=== PATIENT | male | born 1995 | race Caucasian/White ===

== ENCOUNTER 2022-06-15 12:54 | Emergency (ER) | payer OTHER ==
[~2022-06-15] VITALS: Ht 175.3 cm; Wt 95.2 kg
[~2022-06-15 12:54] MED LIST: CYCL10 PO; IBU600 MG PO; LIDO700A20 TOP; Percocet 5-3251 EACH PO; SERT25 PO; Zofran8 MG PO
== END 2022-06-15 15:22 | disposition home or self-care (01) ==
LOC: ER 12:54
DX: R40.4 Transient alteration of awareness (principal); G47.9 Sleep disorder, unspecified; Z79.899 Other long term (current) drug therapy; Z87.891 Personal history of nicotine dependence
CPT/HCPCS: 99284

== ENCOUNTER → 2023-03-22 | Outpatient (CLI) | payer OTHER | LOC: LAB SHORT 16:15 → LAB 16:15 | DX: K14.0 Glossitis (principal) | CPT/HCPCS: 87070; 87205 ==

== ENCOUNTER → 2023-11-04 | Outpatient (CLI) | payer OTHER ==
[2023-11-04 13:30] LABS: BASOPHILS ABSOLUTE AUTO 0.05 K/mm3 (0.00-0.23); BASOPHILS PERCENT AUTO 1 % (0-2); EOSINOPHILS ABSOLUTE AUTO 0.14 K/mm3 (0.00-0.68); EOSINOPHILS PERCENT AUTO 2 % (0-6); Hematocrit 45.7 % (37.0-53.0); Hemoglobin 15.7 g/dL (13.5-17.5); IMMATURE GRAN ABSOLUTE AUTO 0.01 K/mm3 (0.00-0.10); IMMATURE GRAN PERCENT AUTO 0 % (0-1); LYMPHOCYTES ABSOLUTE AUTO 1.82 K/mm3 (0.84-5.20); LYMPHOCYTES PERCENT AUTO 24 % (21-46); MONOCYTES ABSOLUTE AUTO 0.74 K/mm3 (0.16-1.47); MONOCYTES PERCENT AUTO 10 % (4-13); Mean Corpuscular HGB 29.9 pg (26.0-34.0); Mean Corpuscular HGB Conc 34.4 g/dL (31.5-36.5); Mean Corpuscular Volume 87 fL (80-100); Mean Platelet Volume 10.5 fL (9.1-12.4); NEUTROPHILS ABSOLUTE AUTO 4.69 K/mm3 (1.96-9.15); NEUTROPHILS PERCENT AUTO 63 % (41-73); Platelet Count 319 K/mm3 (150-400); RDW Coefficient Variation 12.6 % (11.7-14.2); RDW Standard Deviation 39.5 fL (35.1-46.3); Red Blood Cell Count 5.25 M/mm3 (4.30-5.90); White Blood Cell Count 7.45 K/mm3 (4.00-11.30)
[2023-11-04 13:41] LABS: Albumin, Blood 3.9 g/dL (3.4-5.0); Albumin/Globulin Ratio 1.1 (0.8-1.8); Bilirubin, Total 0.3 mg/dL (0.1-1.0); Bun/Creatinine Ratio 9.4 (12.0-20.0); Calcium, Blood 8.9 mg/dL (8.5-10.1); Creatinine, Blood 0.85 mg/dL (0.60-1.20); Globulin, Blood 3.6 g/dL (2.2-4.0); Potassium, Blood 3.7 mmol/L (3.5-5.5); Total Protein, Blood 7.5 g/dL (6.4-8.2)
== END | disposition home or self-care (01) ==
LOC: LAB SHORT 13:25 → LAB 13:25
PROVIDERS: Physician Assistant
DX: K92.0 Hematemesis (principal)
CPT/HCPCS: 80053; 83690; 85025

== ENCOUNTER 2024-02-29 14:08 | Observation (INO) | payer OTHER ==
[~2024-02-29] VITALS: Ht 177.8 cm; Wt 83.9 kg
[2024-02-29 14:13] VITALS: BP 148/95
[2024-02-29] MEDS ORDERED: ESCI10 PO (14:47)
[2024-02-29 14:52] LABS: Source, Urine Clean Catch
[2024-02-29 14:57] LABS: Appearance, Urine Clear (Clear); Bilirubin, Urine Neg (Neg); Blood, Urine Neg (Neg); Color, Urine Amber (P-Yellow); Glucose Qualitative, Urine Neg (Neg); Ketones, Urine 1+ (Neg); Leukocyte Esterase, Urine 1+ (Neg); Nitrite, Urine Neg (Neg); Protein, Urine 2+ (Neg); Specific Gravity, Urine 1.025 (1.003-1.022); Urobilinogen, Urine 2+ (Normal)
[2024-02-29 15:05] LABS: Calcium Oxalate Crystals Many /hpf; Mucus Heavy (0-Heavy); Red Blood Cells, Urine 0-2 /hpf (0-2)
[2024-02-29 15:06] LABS: BASOPHILS ABSOLUTE AUTO 0.02 K/mm3 (0.00-0.23); BASOPHILS PERCENT AUTO 0 % (0-2); EOSINOPHILS ABSOLUTE AUTO 0.01 K/mm3 (0.00-0.68); EOSINOPHILS PERCENT AUTO 0 % (0-6); Hemoglobin 16.2 g/dL (13.5-17.5); IMMATURE GRAN ABSOLUTE AUTO 0.04 K/mm3 (0.00-0.10); IMMATURE GRAN PERCENT AUTO 0 % (0-1); LYMPHOCYTES ABSOLUTE AUTO 1.41 K/mm3 (0.84-5.20); LYMPHOCYTES PERCENT AUTO 13 % (21-46); MONOCYTES ABSOLUTE AUTO 0.87 K/mm3 (0.16-1.47); MONOCYTES PERCENT AUTO 8 % (4-13); Mean Corpuscular HGB 30.4 pg (26.0-34.0); Mean Corpuscular HGB Conc 35.2 g/dL (31.5-36.5); Mean Corpuscular Volume 86 fL (80-100); NEUTROPHILS ABSOLUTE AUTO 8.65 K/mm3 (1.96-9.15); NEUTROPHILS PERCENT AUTO 79 % (41-73); Platelet Count 327 K/mm3 (150-400); RDW Coefficient Variation 12.6 % (11.7-14.2); Red Blood Cell Count 5.33 M/mm3 (4.30-5.90)
[2024-02-29 15:06] LABS: Bacteria Few /hpf; Squamous Epithelial Cells Few /hpf (Few)
[2024-02-29 15:09] LABS: U Amphetamine Screen Not Detected; U Barbituate Screen Not Detected; U Benzodiazapine Screen Not Detected; U Buprenorphine Screen Not Detected; U Cannabinoids Screen DETECTED; U Cocaine Screen Not Detected; U Methadone Screen Not Detected; U Methamphetamine Screen Not Detected; U Opiates Screen Not Detected; U Oxycodone Screen Not Detected; U Phencyclidine Screen Not Detected
[2024-02-29 15:18] LABS: Ethanol (Alcohol), Blood, Med <3 mg/dL; Salicylate 2.8 mg/dL (2.8-20.0)
[2024-02-29 15:23] LABS: Acetaminophen, Random <2.0 ug/mL (10.0-30.0); Alanine Aminotransfer (ALT/SGP 33 U/L (12-78); Albumin, Blood 4.4 g/dL (3.4-5.0); Albumin/Globulin Ratio 1.2 (0.8-1.8); Alk Phos 117 U/L (50-136); Anion Gap 7 mmol/L (3-11); Aspartate Aminotrans (AST/SGOT 21 U/L (12-37); Bilirubin, Total 0.5 mg/dL (0.1-1.0); Blood Urea Nitrogen 8 mg/dL (8-24); Bun/Creatinine Ratio 8.8 (12.0-20.0); CO2, Blood 29 mmol/L (21-32); Calcium, Blood 9.6 mg/dL (8.5-10.1); Chloride, Blood 105 mmol/L (98-108); Creatinine, Blood 0.91 mg/dL (0.60-1.20); Globulin, Blood 3.8 g/dL (2.2-4.0); Glomerular Filtration Rate 118 (60-); Glucose, Blood 116 mg/dL (70-99); Potassium, Blood 3.9 mmol/L (3.5-5.5); Sodium, Blood 137 mmol/L (136-145); Total Protein, Blood 8.2 g/dL (6.4-8.2)
[2024-02-29] MEDS ORDERED: LORazepam 1 MG Tab PO ONE (15:25)
== END 2024-02-29 21:11 | disposition other institution (70) ==
LOC: ER 14:08 → EOR 14:09
PROVIDERS: Emergency Medicine; ADMIT Emergency Medicine
DX: F32.A Depression, unspecified (principal); R45.851 Suicidal ideations; Z79.899 Other long term (current) drug therapy; Z59.00 Homelessness unspecified
CPT/HCPCS: 80053; 80320; 81001; 85025; 87086; 93005; 93010; 99285-25; A9270; G0378; G0480

== ENCOUNTER 2024-02-29 17:39 | Inpatient (IN) | payer OTHER ==
[~2024-02-29] VITALS: Ht 182.9 cm; Wt 84.1 kg
[~2024-02-29 17:39] MED LIST changes: +ESCI10 PO
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
[2024-03-01 08:12] VITALS: BP 127/70
[2024-03-01] MEDS ORDERED: LORazepam 2 MG Tab PO PRN ×2 (08:20)
[2024-03-01] MEDS ORDERED: Mirtazapine 15 MG Tab PO PRN (08:20)
[2024-03-01] MEDS ORDERED: Acetaminophen 325 MG TABLET PO PRN (08:20)
[2024-03-01] MEDS ORDERED: FLU VACC TS2024-25(6MOS UP)/PF 45 MCG/0.5 ML SYRINGE IM SCH (08:20)
[2024-03-01] MEDS ORDERED: Nicotine Polacrilex 2 MG Gum PO PRN (08:25)
[2024-03-01] MEDS ORDERED: Citalopram Hydrobromide 20 MG Tab PO SCH (09:00)
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
[2024-03-01] MEDS ORDERED: HyDROXyzine HCl 25 MG Tab PO PRN (16:10)
[2024-03-01] MEDS ORDERED: Mirtazapine 15 MG Tab PO SCH (21:00)
[2024-03-01 21:16] VITALS: BP 155/73
--- NOTE | 2024-03-02 02:23 | NUR ---
SHIFT SUMMARY: ASSUMED CARE FROM PRIOR SHIFT. PATIENT IS A/OX4, ABLE TO VOICE NEEDS AND HAVE MEANINGFUL CONVERSATION. [place] WAS VISABLY UPSET AFTER PHONE CONVERSATION WITH HIS FATHER. AT SNACK TIME HE SLAMMED HIS TRASH IN THE TRASH CAN AND STORMED OUT OF THE KITCHEN. PATIENT WAS ASSESSED IN HIS ROOM. HE WAS ABLE TO EXPRESS HIS SADNESS AND ANGER WITH HIS FAMILY. I COMMENDED HIM FOR LEAVING A COMMUNITY AREA AND GOING TO HIS ROOM TO TALK IT OUT WITH STAFF. ENCURAGED HIM TO CONTINUE TO EXPRESS HIS FEELINGS TO STAFF MEMBERS WE ARE HERE TO PROTECT AND PROVIDE A SAFE PLACE FOR FEELINGS. HE IS COMPLIENT WITH ASSESSMENTS, CARE AND MEDICATIONS. HE CURRENTLY DENIES SI, VH OR AH. HE GOES TO BED WITHOUT ENCOURAGMENT. HE IS CURRENTLY SLEEPING WITHOUT ANY BEHAVIORS OR ISSUES.
--- NOTE | 2024-03-02 04:19 | NUR ---
PATIENT CONTINUES TO SLEEP THROUGH THE NIGHT. NO NOTED ISSUES OR BEHAVIORS.
[2024-03-02] MEDS ORDERED: DEXTROMETHORPHAN/BENZOCAINE 1 EACH LOZENGE MT PRN (16:15)
--- NOTE | 2024-03-02 17:13 | NUR ---
SHIFT SUMMARY: PT ALERT, ORIENTED AND COOPERATIVE. DENIES SI, HI AND AVH. PT PRESENT ON UNIT FOR MEALS AND WATCHING TV. PROVIDED WITH PRN TYLENOL AND COUGH DROP. HAD A CALL WITH HIS GIRLFRIEND TODAY AND STATED THAT IT WENT WELL.
[2024-03-03 00:45] VITALS: BP 158/79
--- NOTE | 2024-03-03 04:35 | NUR ---
SHIFT SUMMARY Pt was noted to be visibly relaxed this evening, watching a movie with peers. Reported feeling calmer today, congruent with affect. Pt's behavior was appropriate throughout the shift. Cooperative with HS Remeron. Denied hx with med. Gave education so pt can inform provider/staff if he notices improvement in sleep. Pt was observed to be sleeping overnight with few interruptions. PRN nicotine gum given. No other PRN requests. Maintained on precautions. No suicidal statements this shift.
[2024-03-03 08:03] VITALS: BP 137/71
[2024-03-03] MEDS ORDERED: Nicotine 21 MG PATCH TOP SCH (14:45)
--- NOTE | 2024-03-03 17:05 | NUR ---
SHIFT SUMMARY: PT ALERT, ORIENTED AND COOPERATIVE. DENIES SI, HI AND AVH. PT PRESENT ON THE UNIT AND ACTIVE IN UNIT MILIEU. SPENT TIME IN THE DAY ROOM WATCHING TV AND TALKING TO OTHER PATIENTS.
--- NOTE | 2024-03-03 18:10 | NUR ---
PT SPOKE WITH HIS S/O ON THE PHONE AND BECAME UPSET AFTER THE CONVERSATION. STATED THAT SHE BROKE UP WITH HIM AND DOES NOT WANT HIM TO COME TO HER HOUSE TO MEDICAL PATHOLOGIST HIS STUFF. PT WATCHING TV IN DAY ROOM AND HAS BEEN ABLE TO CALM.
[2024-03-03 21:48] VITALS: BP 140/60
--- NOTE | 2024-03-04 06:26 | NUR ---
SHIFT SUMMARY Pt reports uninterrupted sleep on previous night with Remeron. Received 1st dose of 24hr nicotine patch on day shift and verbalized understanding of recommendation to remove patch before HS to avoid potential vivid dreams if worn overnight. Pt forgot to remove patch and awoke around 0130 d/t high anxiety. Reviewed available PRNs. Pt accepted dose of 1x order for Ativan. After sitting near nurses' station for a few min after taking med, he returned to his room and remained in bed for remainder of shift. BP was reported to be elevated when taken this evening, likely d/t anxiety, triggered by environmental stressors. .
[2024-03-04 10:54] VITALS: BP 165/96
[2024-03-04] MEDS ORDERED: AmLODIPine Besylate 5 MG Tab PO SCH (13:00)
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
[2024-03-04 20:57] VITALS: BP 151/91
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
[2024-03-05 07:25] VITALS: BP 130/84
--- NOTE | 2024-03-05 17:58 | NUR ---
SHIFT SUMMARY PT HAD BEEN COOPERATIVE AND PLEASANT MOST OF TODAY. DINNER HAS TRIGGERED ANGER IN PT R/T LACK OF FOOD. PT INFORMED HE RECEIVED WHAT HE ORDERED AND PT CONTINUES TO BE AGITATED AND DISRESPECTFUL TO OTHER PEERS. THIS NURSE INFORMED PT THAT RUDENESS IS NOT NECESSARY. PT THEN WALKED OFF TO RETURN TO DINING ROOM. PT OFFERED ALTERNATIVE MEAL REPLACEMENT AND PT STATES IN MUCH BETTER MOOD. PT APOLOGIZED FOR BEHAVIORS AND DISRESPECT. THIS NURSE SUPPORTED PT WITH COMMUNICATION AND COMMUNITY RESOURCES TO ASSIST WITH ANGER AND COPING SKILLS. PT V/U AN UNDERSTANDING AND THANKFUL. PT PROVIDED W/ NENA GUM AND HYDROX. WILL CONTINUE TO MONITOR AND PROVIDE SUPPORT NECESSARY
[2024-03-05] MEDS ORDERED: QUEtiapine Fumarate 200 MG Tab PO SCH (21:00)
[2024-03-05 22:10] VITALS: BP 158/73
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
[2024-03-06 07:51] VITALS: BP 140/67
--- NOTE | 2024-03-06 08:48 | NUR ---
AM ASSESSMENT PT PLEASANT AND COOPERATIVE AT THIS TIME. PT DENIES SI/HI OR AVH AT THIS TIME. PT ACTIVELY PARTICIPATING WITH PEERS AND STAFF. PT REPORTS CONCERNS WITH LIVING SITUATION AND HOMELESS FOLLOWING DISCHARGE. PT REPORTS MAKING CALLS TO [facility] WITH NO SUCCESS AT THIS TIME.
--- NOTE | 2024-03-06 09:55 | NUR ---
SI THOUGHTS INFORMED BY SW THAT PT REPORTED THOUGHTS OF SELF STRANGLING WITH USE OF HIS ROBE. SW INFORMED PT OF NEED TO REMOVE ROBE AND V/U BY PT. THIS NURSE ALSO INFORMED THAT PT REPORTING FALSE INFORMATION THIS MORNING DURING AM ASSESSMENT OF NO SI THOUGHTS. INFORMATION INFORMED TO CLINICAL COORDINATOR AND DR POPE.
--- NOTE | 2024-03-06 10:45 | NUR ---
BEHAVIOR COMMUNICATIONS DISCUSSED W/ PT RECENT SELF HARM REPORTS/ BEHAVIORS AND UNIT PROTOCOLS FOR NO SELF HARM BEHAVIORS OR POSSIBLE DISCHARGE FOR VOLUNTARY PT. EDUCATED PT ON STAFF ASSISTANCE FOR HOUSING AND PLACEMENT TO THE BEST OF ABILITY BUT SELF HARM BEHAVIORS WILL CAUSE IMMEDIATE DISCHARGE. EDUCATED ON NEED FOR COPING SKILLS AND ABILITY TO DECOMPRESS ANXIETY/ AGITATION. V/U BY PT
--- NOTE | 2024-03-06 14:28 | NUR ---
PT REQUESTED TO HAVE THE SKIN ON HIS TESTICLES CHECKED. THIS RN CHECKED HIS SKIN, NOTED APROX 1.5 CM RED SPOT WITH PEELING SKIN ON TESTICLE. PROVIDER NOTIFIED BY JOSE DE JESUS AZAR.
--- NOTE | 2024-03-06 20:28 | NUR ---
SHIFT SUMMARY PT PLEASANT AND COOPERATIVE FOLLOWING CONVERSATION DOCUMENTED IN PREVIOUS NOTE. PT PARTICIPATING IN CONVERSATION WITH PEERS AND STAFF WITHOUT BEHAVIORAL UPSETS AND SMILING/ LAUGHING. PT HAD PHONE CALL FROM EX THAT HE REPORTS IS NO LONGER EX. PT REPORTS HE IS TO INQUIRE WITH HER ABOUT A PLACE TO STAY AFTER DISCHARGE FOR A FEW NIGHTS. PT REPORTS FEELING WELL AND ATRIBUTES IT TO NEW BP MEDS. EDUCATED PT ON DECREASE IN BP OFTEN DECREASE IN ANXIETY AND IRRITABLITY. V/U BY PT.
[2024-03-06 20:40] VITALS: BP 141/77
--- NOTE | 2024-03-07 04:07 | NUR ---
SHIFT SUMMARY PT DENIED ANY SI, HI OR AVH. AT THE BEGINNING OF MY SHIFT THE PT INFORMED ME THAT EARLIER IN THE DAY HE HAD WANTED TO ATTEMPT TO HANG HIMSELF WITH HIS ROBE, HE NOW DENIES HAVING ANY SELF HARMING THOUGHTS. HE REPORTS THAT HE FEELS BETTER DUE TO GETTING BACK TOGETER WITH HIS GIRLFRIEND AND THAT HE WILL BE LEAVING ON MONDAY. HE STATES THAT HE NOW FEELS LIKE HE HAS THE TOOLS TO BETTER CONTROL HIS ANGER. PT WAS PLEASANT AND INTERACTIVE WITH STAFF AND PEERS. HE WAS COMPLIANT WITH MEDICATIONS. HE WENT TO BED AROUND 2129 AND HAS APPEARED TO BE SLEEPING, EYES CLOSED, RESPIRATIONS EVEN AN UNLABORED. PT'S DOOR HAS REMAINED OPEN DURING THE NIGHT. Q15 MINUTE CHECKS TO CONTINUE PER UNIT PROTOCOL.
[2024-03-07 08:14] VITALS: BP 145/65
--- NOTE | 2024-03-07 11:07 | NUR ---
PT STATES HE IS DEPRESSED BUT MUCH BETTER NOW SINCE HE MADE UP WITH HIS GIRL FRIEND. HAD PAIN 9/10 IN LOW BACK WAS MEDICATED WITH TYLENOL AND PAIN RELIEVED 0/10. DID STATE WHEN HE DISCHARGES HE IS NOT GOING TO [facility]". ORTHOSTATIC VS WITH IN NORMAL LIMITS. HAD A X1 HINT OF CHEST PAIN. WILL CONTINUE TO MONITOR.
--- NOTE | 2024-03-07 17:39 | NUR ---
SHIFT SUMMARY; PT DENIES SI. STATES IS DEPRESSED BUT HAPPY BECAUSE HE WILL BE DISCHARGED TOMORROW. WAS LR OF RUDENESS THIS MORNING BUT APOLGITIC THROUGH OUT HE DAY. HE MADE A PHONE CALL IN EARLY AFTERNOON TO FATHER AND BECAME ANGRY. REMAINS WITH NO ROBE FROM PREVIOUSLY STATING HE WOULD USE IT TO HANG HIMSELF. MED COMPLIANT HAS HAD TYLENOL TWICE TODAY FOR LOW BACK PAIN. RELIEF WITH TYLENOL. ORHOTATIC BP WITHIN NORMAL LIMITS. INTERACTS WITH PEERS. WILL CONTINUE TO MONITOR.
[2024-03-07 19:58] VITALS: BP 150/75
--- NOTE | 2024-03-08 06:11 | NUR ---
SHIFT SUMMARY At start of shift, pt reports plan for discharge tomorrow (03/08/24) and was eager to start the process. Confirmed that pt's preferred pharmacy was already listed and that he could call his mom in the AM to make a plan to [facility] pickup meds. Received report that pt will be living with his girlfriend. 1953: A group of patients was watching movie in tv room when those seated next to this pt alerted staff that pt was suddenly unconscious. The moment was fleeting so unwitnessed by staff. VS were stable (BP 150/75, P 62, O2 98%, RR 18. T 97.9). emery wheel worker performed neuro checks (no abnormalities noted). Memory intact. Updated provider of pt's brief syncopal episode. 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 No acute medical emergency identified. Continued to monitor pt throughout the shift. No additional s/s. Gave PRN hydroxyzine with HS Seroquel. Denies SI. Despite anxiety, expresses readiness for discharge. Pleasant interactions with peers. Calmer with support of others.
[2024-03-08 08:02] VITALS: BP 137/81
[2024-03-08] MEDS ORDERED: HYDHCL25 PO (10:28)
[2024-03-08] MEDS ORDERED: NICO21TP TOP (10:29)
[2024-03-08] MEDS ORDERED: QUET200 PO (10:30)
--- NOTE | 2024-03-08 13:33 | NUR ---
DISCHARGE NOTE. PT A/O X4. DISCHARGED AT 1303. PT GIVEN VERBAL AND WRITTEN DISCHARGE INSTRUCTIONS. PRESCRIPTIONS CALLED AND VERIFIED WITH [facility] AND SPOKE WITH ZACHARIAH IN THE PHARMACY FOR [facility]. BELONGINGS RETURNED UPON DISCHARGE. PT WILL FOLLOW UP WITH [facility] FOR APPOINTMENTS NEXT WEEK. PT AMBULATED OUT TO [facility] WITHOUT DIFFCULTY.
== END 2024-03-08 13:03 | disposition home or self-care (01) | DRG 885 ==
LOC: BHU 17:39
PROVIDERS: ADMIT Psychiatry & Neurology Psychiatry
DX: F33.2 Major depressive disorder, recurrent severe without psychotic features (principal); Z59.00 Homelessness unspecified; R45.851 Suicidal ideations; F60.3 Borderline personality disorder; I10 Essential (primary) hypertension; F41.9 Anxiety disorder, unspecified; Z79.899 Other long term (current) drug therapy; F25.1 Schizoaffective disorder, depressive type
CPT/HCPCS: A9270

== ENCOUNTER 2024-05-24 15:59 | Emergency (ER) | payer OTHER ==
[~2024-05-24] VITALS: Ht 180.3 cm; Wt 88.5 kg
[~2024-05-24 15:59] MED LIST changes: +HYDHCL25 PO; +NICO21TP TOP; +QUET200 PO
[2024-05-24 16:53] LABS: BASOPHILS ABSOLUTE AUTO 0.02 K/mm3 (0.00-0.23); BASOPHILS PERCENT AUTO 0 % (0-2); EOSINOPHILS ABSOLUTE AUTO 0.13 K/mm3 (0.00-0.68); EOSINOPHILS PERCENT AUTO 2 % (0-6); Hematocrit 41.9 % (37.0-53.0); Hemoglobin 14.8 g/dL (13.5-17.5); IMMATURE GRAN ABSOLUTE AUTO 0.02 K/mm3 (0.00-0.10); IMMATURE GRAN PERCENT AUTO 0 % (0-1); LYMPHOCYTES ABSOLUTE AUTO 2.07 K/mm3 (0.84-5.20); LYMPHOCYTES PERCENT AUTO 26 % (21-46); MONOCYTES ABSOLUTE AUTO 1.07 K/mm3 (0.16-1.47); MONOCYTES PERCENT AUTO 13 % (4-13); Mean Corpuscular HGB 30.5 pg (26.0-34.0); Mean Corpuscular HGB Conc 35.3 g/dL (31.5-36.5); Mean Corpuscular Volume 86 fL (80-100); Mean Platelet Volume 10.8 fL (9.1-12.4); NEUTROPHILS ABSOLUTE AUTO 4.82 K/mm3 (1.96-9.15); NEUTROPHILS PERCENT AUTO 59 % (41-73); Platelet Count 271 K/mm3 (150-400); RDW Coefficient Variation 12.9 % (11.7-14.2); RDW Standard Deviation 39.9 fL (35.1-46.3); Red Blood Cell Count 4.86 M/mm3 (4.30-5.90); White Blood Cell Count 8.13 K/mm3 (4.00-11.30)
[2024-05-24 17:18] LABS: Alanine Aminotransfer (ALT/SGP 40 U/L (12-78); Albumin, Blood 3.9 g/dL (3.4-5.0); Albumin/Globulin Ratio 1.1 (0.8-1.8); Alk Phos 129 U/L (50-136); Anion Gap 8 mmol/L (3-11); Aspartate Aminotrans (AST/SGOT 22 U/L (12-37); Bilirubin, Total 0.3 mg/dL (0.1-1.0); Blood Urea Nitrogen 18 mg/dL (8-24); Bun/Creatinine Ratio 13.5 (12.0-20.0); CO2, Blood 29 mmol/L (21-32); Calcium, Blood 8.8 mg/dL (8.5-10.1); Chloride, Blood 109 mmol/L (98-108); Creatinine, Blood 1.33 mg/dL (0.60-1.20); Globulin, Blood 3.4 g/dL (2.2-4.0); Glomerular Filtration Rate 75 (60-); Glucose, Blood 95 mg/dL (70-99); Potassium, Blood 4.1 mmol/L (3.5-5.5); Sodium, Blood 142 mmol/L (136-145); Total Protein, Blood 7.3 g/dL (6.4-8.2)
[2024-05-24 20:02] LABS: Source, Urine Clean Catch
[2024-05-24 20:13] LABS: Ethanol (Alcohol), Blood, Med <3 mg/dL
[2024-05-24 20:14] LABS: Appearance, Urine Clear (Clear); Bilirubin, Urine Neg (Neg); Blood, Urine Neg (Neg); Color, Urine Yellow (P-Yellow); Glucose Qualitative, Urine Neg (Neg); Ketones, Urine Neg (Neg); Leukocyte Esterase, Urine Neg (Neg); Nitrite, Urine Neg (Neg); Protein, Urine Neg (Neg); Urobilinogen, Urine NORM (Normal)
[2024-05-24] MEDS ORDERED: Ondansetron HCl 2 MG / ML 2ML Vial IV ONE (20:15)
[2024-05-24 20:36] LABS: U Cannabinoids Screen DETECTED
[2024-05-24 20:37] LABS: U Amphetamine Screen Not Detected; U Barbituate Screen Not Detected; U Benzodiazapine Screen Not Detected; U Buprenorphine Screen Not Detected; U Cocaine Screen Not Detected; U Methadone Screen Not Detected; U Methamphetamine Screen Not Detected; U Opiates Screen Not Detected; U Oxycodone Screen Not Detected; U Phencyclidine Screen Not Detected
[2024-05-24] MEDS ORDERED: levETIRAcetam 1,500 MG in NS 100 ML IV ONE (21:15)
[2024-05-24] MEDS ORDERED: LEVE500 PO (21:23)
[2024-05-24 21:30] VITALS: BP 141/88
== END 2024-05-24 21:58 | disposition home or self-care (01) ==
LOC: ER 15:59
PROVIDERS: Physician Assistant; Student in an Organized Health Care Education/Training Program
DX: R56.9 Unspecified convulsions (principal); Z87.891 Personal history of nicotine dependence; Z79.899 Other long term (current) drug therapy
CPT/HCPCS: 70450; 72125; 80053; 80320; 81003; 85025; J1953; J2405